=== PATIENT | male | born 1980 | race Caucasian/White ===

== ENCOUNTER 2022-05-19 21:49 | Emergency (ER) | payer SELFPAY ==
[~2022-05-19] VITALS: Ht 182.9 cm; Wt 72.6 kg
[2022-05-19 22:18] VITALS: BP 145/92
[2022-05-19] MEDS ORDERED: TORADOL ONE (22:25)
[2022-05-19] MEDS: TORADOL IM STA (22:33)
--- NOTE | 2022-05-19 22:37 | DIREP ---
PROCEDURE:XRAY KNEE 3 VIEWS-LT COMPARISON:None. INDICATIONS:pain after trauma FINDINGS: BONES:Normal. No fracture. JOINTS:Normal. No dislocation. No joint effusion. SOFT TISSUES:Mild prepatellar and infrapatellar soft tissue swelling. OTHER:No additional findings. CONCLUSION: Mild left prepatellar and infrapatellar soft tissue swelling. No underlying osseous abnormality. Dictated by: Jerzy Ledbetter MD on 05/19/2022 at 10:36 PM
--- NOTE | 2022-05-19 23:04 | ER.PDOC ---
General Chief Complaint: Requesting Medical Care Stated Complaint: KNEE PAIN Time seen by MD: 22:15 Source: patient Exam Limitations: no limitations History of Present Illness Initial Comments Patient is a 41-year-old male with a past medical historyDocumented later in this chart who comes in with left knee pain after hitting it a day ago.Patient states he hit it while working couple days ago had 2 abrasions and states that he immediately had a sharp pain that has now come to his sore pain made worse with movement palpation better with rest. Patient states he has associated symptoms of swelling denies any erythema or fevers or any other symptoms or concerns at this time. Past Medical History Medical History: other Surgical History: no surgical history Family History Significant Family History: no pertinent family hx Social History Smoking: other Alcohol Use: none Drug Use: none Reviewed Nursing Reviewed: Vital Signs, Abn. Noted, Nursing Assessment Review of Systems Constitutional: no symptoms reported EENTM: no symptoms reported Respiratory: no symptoms reported Cardiovascular: no symptoms reported Gastrointestinal: no symptoms reported Genitourinary: no symptoms reported Musculoskeletal: joint pain, joint swelling Skin: no symptoms reported Psychiatric/Neurological: no symptoms reported Physical Exam General Appearance: Alert, No Apparent Distress Foot: nml inspection, non-tender, nml color/temp, skin intact Ankle: nml inspection, non-tender, nml ROM, no joint swelling, skin intact Knee: tenderness, swelling Thigh/Hip: nml inspection Gait: normal Neuro/Vasc/Tendon: sensation nml, motor nml, no vascular compromise, tendon function nml Skin: warm/dry (other than two abrasion on left knee ) Head/ENT: nml inspection, pharynx nml Neck/Back: nml inspection, non-tender Abdomen: non-tender, pelvis stable Results/Orders Results/Orders Orders - ELKE SIMON MD Xr Knee Lt 3v (05/19/22 22:17) Ketorolac Tromethamine (Toradol) (05/19/22 22:17) Ketorolac Tromethamine (Toradol) (05/19/22 22:25) Vital Signs Date Time Temp Pulse Resp B/P (MAP) Pulse Ox O2 Delivery O2 Flow Rate FiO2 05/19/22 22:18 97.9 100 20 97 05/19/22 22:18 97.9 100 20 05/19/22 22:18 97.9 100 20 145/92 (109) 97 Room Air* 0 21 Administered Medications Medications (Trade) Dose Ordered Sig/Ken Route PRN Reason Start Time Stop Time Status Last Admin Dose Admin Ketorolac Tromethamine (Toradol) 15 mg OT STAT IM 05/19/22 22:17 05/19/22 22:19 DC 05/19/22 22:33 15 MG Progress Progress Patient here with left knee pain after an injury will obtain x-rays for bony abnormalities we will continue to monitor will provide symptomatic control. [id number] states that he is improving will discharge with crutches ketorolac and Robaxin. He voiced understanding when to follow-up and when to return to the ER. ER DEPART Departure Time of Disposition: 23:03 Disposition: 01 HOME / SELF CARE / HOMELESS Impression: Primary Impression: Knee pain Condition: Improved Patient Instructions: Knee Pain Referrals: PCP,UNKNOWN (PCP) PRIMARY CARE PROVIDER Additional Instructions: Follow-up with primary care provider within 1 week. If you have any new persistent or worsening symptoms or concerns seek medical attention. Take all medications as prescribed. Duration or Time Spent with Pa: 35 Problem Qualifiers Primary Impression: Knee pain Chronicity: acute Laterality: left Qualified Codes: M25.562 - Pain in left knee ELKE SIMON MD May 19, 2022 23:04
== END 2022-05-19 23:16 | disposition home or self-care (01) ==
LOC: ER 21:49
DX: S80.212A Abrasion, left knee, initial encounter (principal); M25.562 Pain in left knee; W22.8XXA Striking against or struck by other objects, initial encounter; Y93.89 Activity, other specified; Y92.89 Other specified places as the place of occurrence of the external cause; Y99.8 Other external cause status
CPT/HCPCS: 99283; 96372; 73562; J1885